=== PATIENT | male | born 1945 | race Caucasian/White ===

== ENCOUNTER 2020-04-30 14:04 | Emergency (ER) | payer OTHER, SELFPAY ==
[2020-04-30 15:44] LABS: HEMOGLOBIN 14.6 gm/dl (14.0-17.5); RED BLOOD COUNT 6.95 M/UL (4.20-5.50); WHITE BLOOD COUNT 4.6 K/UL (4.5-11.0)
[2020-04-30 16:06] LABS: BUN/CREATININE RATIO 27 (0-10)
[2020-05-01] MEDS ORDERED: OXYCODONE HCL10 MG PO (22:52)
[2020-05-01] MEDS ORDERED: AMLODIPINE BESYL5 MG PO (22:54)
== END 2020-04-30 16:33 | disposition home or self-care (01) ==
LOC: ER1 14:04
PROVIDERS: Emergency Medicine
DX: C22.9 Malignant neoplasm of liver, not specified as primary or secondary (principal); Z87.19 Personal history of other diseases of the digestive system
CPT/HCPCS: 80053; 82962; 83690; 85025; 99283

== ENCOUNTER 2020-05-01 18:22 | Observation (INO) | payer OTHER ==
[~2020-05-01] VITALS: Ht 177.8 cm; Wt 64.4 kg
[2020-05-01 19:35] LABS: HEMOGLOBIN 15.7 gm/dl (14.0-17.5); RED BLOOD COUNT 7.56 M/UL (4.20-5.50); WHITE BLOOD COUNT 4.6 K/UL (4.5-11.0)
[2020-05-01 20:07] LABS: BUN/CREATININE RATIO 22 (0-10)
[2020-05-01] MEDS ORDERED: OXYCODONE HCL10 MG PO (22:52)
[2020-05-01] MEDS ORDERED: AMLODIPINE BESYL5 MG PO (22:54)
[2020-05-02 04:30] LABS: HEMOGLOBIN 14.6 gm/dl (14.0-17.5); RED BLOOD COUNT 6.9 M/UL (4.20-5.50); WHITE BLOOD COUNT 4.5 K/UL (4.5-11.0)
[2020-05-02 04:49] LABS: BUN/CREATININE RATIO 25 (0-10)
[2020-05-02] MEDS ORDERED: BOOST PLUS237 ML PO (12:47)
[2020-05-03 13:08] LABS: C-PEPTIDE, SERUM 0.5 ng/mL (1.1-4.4); INSULIN 0.7 uIU/mL (2.6-24.9)
== END 2020-05-02 15:47 | disposition home or self-care (01) ==
LOC: ER1 18:22 → M/S 20:44 → CDU 20:44 → M/S 20:44
PROVIDERS: Physician Assistant; ADMIT Internal Medicine
DX: C22.0 Liver cell carcinoma (principal); G93.40 Encephalopathy, unspecified; E16.2 Hypoglycemia, unspecified; E43 Unspecified severe protein-calorie malnutrition; E87.1 Hypo-osmolality and hyponatremia; E86.0 Dehydration; G89.29 Other chronic pain; I10 Essential (primary) hypertension; Z20.822 Contact with and (suspected) exposure to COVID-19
CPT/HCPCS: 36415; 70450; 71045; 80053; 81001; 82140; 82550; 82553; 82962; 83605; 83690; 83735; 83874; 84484; 84681; 85025; 85610; 85730; 87040; 87086; 93005; 96374; 96375; 99285; G0378; J1644; J3480; J7030; U0002

== ENCOUNTER 2020-05-11 19:06 | Emergency (ER) | payer OTHER, SELFPAY ==
[~2020-05-11 19:06] MED LIST: AMLODIPINE BESYL5 MG PO; BOOST PLUS237 ML PO; OXYCODONE HCL10 MG PO
[2020-05-11 19:45] LABS: HEMOGLOBIN 16.2 gm/dl (14.0-17.5); RED BLOOD COUNT 7.69 M/UL (4.20-5.50); WHITE BLOOD COUNT 6.1 K/UL (4.5-11.0)
[2020-05-11 20:52] LABS: BUN/CREATININE RATIO 28 (0-10)
[2020-05-11] MEDS ORDERED: OMNICEF 300 MG300 MG PO (22:58)
== END 2020-05-11 23:30 | disposition home or self-care (01) ==
LOC: ER1 19:06
PROVIDERS: Emergency Medicine
DX: E16.2 Hypoglycemia, unspecified (principal); N39.0 Urinary tract infection, site not specified; R14.0 Abdominal distension (gaseous); Z85.05 Personal history of malignant neoplasm of liver; Z20.822 Contact with and (suspected) exposure to COVID-19
CPT/HCPCS: 36415; 71046; 80053; 81001; 82550; 82553; 82962; 83874; 84484; 85025; 93005; 96374; 99285; J0696; U0002

== ENCOUNTER 2020-05-14 11:21 | Inpatient (IN) | payer OTHER, SELFPAY ==
[~2020-05-14] VITALS: Ht 177.8 cm; Wt 64.0 kg
[~2020-05-14 11:21] MED LIST changes: +OMNICEF 300 MG300 MG PO
[2020-05-14 12:49] LABS: RED BLOOD COUNT 6.98 M/UL (4.20-5.50)
[2020-05-14 13:03] LABS: WHITE BLOOD COUNT 8.9 K/UL (4.5-11.0)
[2020-05-14 13:41] LABS: BUN/CREATININE RATIO 28 (0-10)
[2020-05-14] MEDS ORDERED: OMEPRAZOLE20 MG PO (17:06)
[2020-05-14] MEDS ORDERED: DRONABINOL5 MG PO (17:07)
[2020-05-14] MEDS ORDERED: MORPHINE SULFAT15 M2 PO (17:08)
[2020-05-15 04:45] LABS: HEMOGLOBIN 14.2 gm/dl (14.0-17.5); RED BLOOD COUNT 6.57 M/UL (4.20-5.50)
[2020-05-15 05:03] LABS: BUN/CREATININE RATIO 27 (0-10)
[2020-05-16 03:03] LABS: BUN/CREATININE RATIO 26 (0-10)
[2020-05-16 03:20] LABS: HEMOGLOBIN 14.8 gm/dl (14.0-17.5); RED BLOOD COUNT 7.27 M/UL (4.20-5.50); WHITE BLOOD COUNT 9.8 K/UL (4.5-11.0)
[2020-05-17 02:18] LABS: RED BLOOD COUNT 6.93 M/UL (4.20-5.50); WHITE BLOOD COUNT 9.1 K/UL (4.5-11.0)
[2020-05-17 02:41] LABS: BUN/CREATININE RATIO 29 (0-10)
== END 2020-05-17 13:25 | disposition hospice, inpatient (51) | DRG 177 ==
LOC: ER1 11:21 → PROG CARE 15:40 → CDU 15:40 → M/S 20:28 → ZEROF 05-15 01:06 → M/S 05-15 01:06 → ZEROF 05-15 01:06 → PROG CARE 05-15 17:42
PROVIDERS: Emergency Medicine; Physician Assistant Medical; ADMIT Hospitalist
PROC: 0W9G3ZZ Drainage of Peritoneal Cavity, Percutaneous Approach (ICD-10-PCS; principal; 2020-05-16)
DX: J69.0 Pneumonitis due to inhalation of food and vomit (principal); J96.01 Acute respiratory failure with hypoxia; I81 Portal vein thrombosis; C24.9 Malignant neoplasm of biliary tract, unspecified; R64 Cachexia; Z68.1 Body mass index [BMI] 19.9 or less, adult; J98.11 Atelectasis; G93.49 Other encephalopathy; R18.0 Malignant ascites; N39.0 Urinary tract infection, site not specified; Z20.822 Contact with and (suspected) exposure to COVID-19; G89.29 Other chronic pain; M54.9 Dorsalgia, unspecified; Z87.891 Personal history of nicotine dependence; Z80.8 Family history of malignant neoplasm of other organs or systems; Z82.49 Family history of ischemic heart disease and other diseases of the circulatory system; I10 Essential (primary) hypertension; Z66 Do not resuscitate; E61.1 Iron deficiency; G89.3 Neoplasm related pain (acute) (chronic); M35.00 Sjogren syndrome, unspecified; R63.0 Anorexia; E16.2 Hypoglycemia, unspecified
CPT/HCPCS: 36415; 36600; 70450; 71045; 71250; 80048; 80053; 81001; 82140; 82533; 82550; 82553; 82803; 82962; 83036; 83605; 83690; 83735; 83874; 83880; 84439; 84443; 84484; 84681; 85025; 85027; 87040; 93005; 96365; 96366; 96368; 96372; 96375; 99285; G0378; J2405; J2543; J3370; J7070; U0002